=== PATIENT | male | born 1960 | race Caucasian/White ===

== ENCOUNTER 2022-07-05 08:48 | Observation (INO) ==
[~2022-07-05 08:48] MED LIST: Buffered Lidocaine 1% SYRIN 1 ml INTRADERM ONE; Famotidine IV 10 MG/ML 2 ml VIAL (20 mg) IV ONE; Gelfoam Sponge SIZE 100 SPONGE ONE; Lactated Ringers 1000 ml BAG 1,000 ML IV SCH; Lidocaine 1% w EPI 1:100,000 MDV 20 ML VIAL ONE; Thrombin 5,000 UNITS 1 APPLIC KIT - topical use - TOPICAL ONE; ceFAZolin VIAL VIAL ONE
[2022-07-05] MEDS ORDERED: Chlorhexidine MOUTHWASH 0.12% 15 ML UDC ONE (09:04)
[2022-07-05] MEDS ORDERED: Buffered Lidocaine 1% SYRIN 1 ml ONE (09:24)
[2022-07-05] MEDS ORDERED: ceFAZolin 2 GM PREMIX 2 GM/50 ML BAG ONE (09:24)
[2022-07-05] MEDS ORDERED: Famotidine IV 10 MG/ML 2 ml VIAL (20 mg) ONE ×2 (09:24→10:01)
[2022-07-05] MEDS ORDERED: Dexamethasone IV 4 MG/ML VIAL 1 ml VIAL ONE (09:29)
[2022-07-05] MEDS ORDERED: HYDROmorphone 0.5 MG/0.5 ML SYRINGE ONE ×2 (09:29→11:38)
[2022-07-05] MEDS ORDERED: Propofol 10 MG/ML 20 ML BTL ONE (09:29)
[2022-07-05] MEDS ORDERED: Lidocaine 2% PF 5 ML VIAL ONE (09:29)
[2022-07-05] MEDS ORDERED: Ketamine HCL 50 mg/ml 10 ml VIAL (500 MG) ONE (09:29)
[2022-07-05] MEDS ORDERED: Rocuronium 50 mg VIAL 10 mg/ml 5 ml VIAL (50 mg) ONE ×2 (09:29→11:38)
[2022-07-05] MEDS ORDERED: Ondansetron 4 mg VIAL 2 MG/ML 2 ml VIAL ONE (09:29)
[2022-07-05] MEDS ORDERED: Phenylephrine 40 mcg/mL 10mL (400mcg) SYRINGE ONE (09:29)
[2022-07-05] MEDS ORDERED: Midazolam 5 mg/5 ml VIAL 1 mg/ml 5 ml VIAL (5 mg) ONE (09:29)
[2022-07-05] MEDS ORDERED: fentaNYL 100 mcg/2 ml 50 MCG/ML VIAL ONE (09:29)
[2022-07-05] MEDS ORDERED: Scopolamine 1 mg/72hr PATCH ONE (10:13)
[2022-07-05] MEDS ORDERED: Oxymetazoline 0.05% NASAL SPR 15 ML BTL ONE (11:18)
[2022-07-05] MEDS ORDERED: fentaNYL 100 mcg/2 ml 50 MCG/ML VIAL IV PRN (12:03)
[2022-07-05] MEDS ORDERED: HYDROmorphone 1 MG/1 ML SYRINGE IV PRN (12:03)
[2022-07-05] MEDS ORDERED: Naloxone 0.4 mg VIAL 0.4 mg/ml 1 ml VIAL IV PRN (12:03)
[2022-07-05] MEDS ORDERED: Acetaminophen IV 1 GM/100ML 1,000 MG/100 ML BAG IV ONE (12:12)
[2022-07-05] MEDS ORDERED: Sugammadex 500 MG/5 ML 5 ml VIAL IV PUSH ONE (12:47)
[2022-07-05] MEDS ORDERED: Senna TAB 8.6 mg TAB PO PRN (13:13)
[2022-07-05] MEDS ORDERED: Calcium Carb (TUMS) 500 mg CHEW TAB PO PRN (13:13)
[2022-07-05] MEDS ORDERED: Ondansetron 4 mg VIAL 2 MG/ML 2 ml VIAL IV PRN (13:13)
[2022-07-05] MEDS ORDERED: Albuterol HFA INHALER 8 gm MDI INH PRN (13:19)
[2022-07-05] MEDS ORDERED: Lactated Ringers 1000 ml BAG 1,000 ML IV SCH (14:00)
[2022-07-05 14:20] LABS: Rapid COVID-19 Molecular Undetected (Undetected)
[2022-07-05] MEDS: HYDROcodone/ACETAMIN 5/325 mg TAB PO PRN ×2 (15:03→19:31)
[2022-07-05] MEDS ORDERED: NF: Alfuzosin ER 10 mg TAB.ER (NF) 10 MG TAB.ER PO SCH (21:00)
[2022-07-05] MEDS ORDERED: NF: Vibegron 75 MG TAB (NF) PO SCH (21:00)
[2022-07-06] MEDS: HYDROcodone/ACETAMIN 5/325 mg TAB PO PRN ×3 (02:02→15:06)
[2022-07-06] MEDS ORDERED: DULoxetine DR 30 mg CAP PO SCH (09:00)
[2022-07-06] MEDS ORDERED: Aspirin EC 81 mg TAB.EC (enteric coated) PO SCH (09:00)
[2022-07-06] MEDS ORDERED: Lithium Carbonate ER 450mg TAB PO SCH (09:00)
[2022-07-06 14:53] VITALS: BP 129/67
[2022-07-06] MEDS ORDERED: CMC: Alfuzosin ER 10 mg TAB.ER (NF) 10 MG TAB.ER PO SCH (18:00)
== END 2022-07-06 15:35 | disposition home or self-care (01) ==
LOC: OR 08:48 → SSU 08:48
PROVIDERS: ADMIT Neurological Surgery; ATTEND Neurological Surgery